=== PATIENT | male | born 1960 | race Caucasian/White ===

== ENCOUNTER 2022-10-20 11:29 | Emergency (ER) | payer SELFPAY ==
[2022-10-20] MEDS ORDERED: Dexamethasone 10 MG/ML VIAL ONE (12:24)
== END 2022-10-20 12:40 | disposition home or self-care (01) ==
LOC: CSHERS 11:29
DX: R21 Rash and other nonspecific skin eruption (principal); F17.210 Nicotine dependence, cigarettes, uncomplicated
CPT/HCPCS: 96372; 99282; J1100